=== PATIENT | female | born 1965 | race Caucasian/White ===

== ENCOUNTER 2024-04-09 21:36 | Emergency (ER) | payer SELFPAY ==
[~2024-04-09] VITALS: Ht 154.9 cm; Wt 86.4 kg
[2024-04-09 21:44] VITALS: TEMP 98.2
[2024-04-09 23:05] VITALS: BP 148/85; PULSE 83
== END 2024-04-09 23:03 | disposition home or self-care (01) ==
LOC: COL.ER 21:36
DX: M79.642 Pain in left hand (principal)